=== PATIENT | female | born 1975 | race Caucasian/White ===

== ENCOUNTER 2016-10-10 14:51 | Emergency (ER) | payer MEDICAID ==
[~2016-10-10] VITALS: Wt 78.1 kg
[~2016-10-10 14:51] MED LIST: PREN1TAB62 PO; PRENAT PO; URSO250T10 PO
--- NOTE | 2016-10-10 17:29 | RADRPT ---
PROCEDURE: US OB CLINICAL INDICATION: no heart tones noted TECHNIQUE: Multiple sonographic images of the pelvis were obtained. The images were reviewed on a PACS workstation. COMPARISON: None FINDINGS: The cervix is not well visualized. There is a single viable intrauterine gestation. There is no cardiac activity. There is a breech presentation. The placenta is anterior. There is no evidence for an abruption or placenta previa. There is a subjectively normal amount of amniotic fluid. Measurements were made in order to determine age. The results are as follows (cm): BPD =3.06 HC =11.05 AC =9.07 FL =1.67 Estimated gestational age by ultrasound of approximately 15 weeks, 2 days. The estimated date of delivery by ultrasound is 04/01/2017. Estimated gestational age by LMP of approximately 18 weeks, 6 days. The estimated date of delivery by LMP is 03/07/2017. EFW = 116 grams IMPRESSION: A single intrauterine gestation is identified consistent with a gestational age of 15 weeks, 2 days. No heart tones are detected consistent with demise. Continued sonographic follow-up i s recommended. Breech presentation. These findings were discussed with IBETH Meier over the phone on 10/10/2016 at 17:25 hours . RPTAT: EE Physician Selvin Date Time Electronically viewed and signed by Physician Selvin on 10/10/2016 17:28 /
--- NOTE | 2016-10-10 19:08 | ERD ---
ER Documentation Chief Complaint Date/Time DATE: 10/10/16 TIME: 19:06 Chief Complaint no auscultated fht per ob sent here for further eval. no vag bleed or pain HPI 41-year-old female with no significant past medical history is a presents the ED complaining of no heart tones detected on her ultrasound earlier today at the clinic. States that she was sent here by her OB clinic for a repeat ultrasound for further evaluation. Reports that her last menses was on May 31. Denies any vaginal bleeding, vaginal discharge, abdominal pain , chest pain, shortness of breath, vomiting, dysuria. ROS All systems reviewed and are negative except as per history of present illness. Medications Home Meds Reported Medications Ursodiol* (Ursodiol*) 250 Mg Tablet, 250 MG PO BID, TAB 10/02/14 Vit-Iron Fumarate-FA ( Vitamin Tablet) 1 Each Tablet, 1 TAB PO DAILY, TAB 10/02/14 Multivit/Min/Fol Ac/Iron/Pren* ( S*) 1 Tab Tab, 1 TAB PO BEFORE LUNCH, TAB 09/02/14 Allergies Allergies: Coded Allergies: No Known Allergies (Unverified Allergy, Unknown, 10/02/14) PMhx/Soc Medical and Surgical Hx: pt denies Medical Hx, pt denies Surgical Hx Physical Exam Vitals Vital Signs Date Time Temp Pulse Resp B/P Pulse Ox O2 Delivery O2 Flow Rate FiO2 10/10/16 15:28 98.1 95 21 123/67 98 Physical Exam Const: Wpn-ugy-zcqsknlim, well-nourished. In no acute distress. Head: Atraumatic, normocephalic Eyes: Normal Conjunctiva without injection. No purulent discharge. ENT: Normal external ear, nose. Moist oropharynx without tonsillar exudates. Non -erythematous pharynx. Uvula midline. No drooling. No trismus. Neck: No cervical midline tenderness. Full range of motion. No meningismus. No cervical lymphadenopathy. No JVD. Resp: Clear to auscultation bilaterally. No wheezing, rhonchi, rales, or crackles. No accessory muscle use. No retractions. Cardio: Regular rate and rhythm. No murmurs, rubs or gallops. Abd: Soft, nontender to palpation, non distended. Normal bowel sounds. No palpable masses. No rebound tenderness. No guarding. Negative McBurney's point. Negative psoas sign. Negative obturator sign. : See exam in MDM. Skin: No petechiae or rashes Back: No midline tenderness. No CVA tenderness. Ext: No cyanosis, or edema. Neur: Awake and alert. Normal gait. Normal coordination. Psych: Normal Mood and Affect Procedures/MDM This is a 41-year-old female with no significant past medical history is a presents the ED complaining of no heart tones noted on her ultrasound. Patient is afebrile and nontoxic-appearing. Patient has normal vital signs. An ultrasound was ordered to further evaluate patient. PROCEDURE: US OB CLINICAL INDICATION: no heart tones noted TECHNIQUE: Multiple sonographic images of the pelvis were obtained. The images were reviewed on a PACS workstation. COMPARISON: None FINDINGS: The cervix is not well visualized. There is a single viable intrauterine gestation. There is no cardiac activity. There is a breech presentation. The placenta is anterior. There is no evidence for an abruption or placenta previa. There is a subjectively normal amount of amniotic fluid. Measurements were made in order to determine age. The results are as follows (cm): BPD = 3.06 HC = 11.05 AC = 9.07 FL = 1.67 Estimated gestational age by ultrasound of approximately 15 weeks, 2 days. The estimated date of delivery by ultrasound is 04/01/2017. Estimated gestational age by LMP of approximately 18 weeks, 6 days. The estimated date of delivery by LMP is 03/07/2017. EFW = 116 grams IMPRESSION: A single intrauterine gestation is identified consistent with a gestational age of 15 weeks, 2 days. No heart tones are detected consistent with demise. Continued sonographic follow-up is recommended. Breech presentation. These findings were discussed with IBETH Albarran over the phone on 10/10/2016 at 17:25 hours . Patient's ultrasound shows a possible demise. This case was discussed with my supervising physician, Dr. Madsen. We both agreed to consult delay person contract associate. Dr. Evans consulted and stated that patient can be managed on outpatient basis. Low suspicion for symptomatic anemia, ectopic , sepsis, PID, appendicitis, ovarian torsion, tubo-ovarian abscess, surgical abdomen, or other emergent conditions. Patient was educated that there is a risk for threatened . Patient to follow up with [facility] in 2 days for further evaluation and treatment. Patient is to return sooner to the ED for any worsening symptoms. Patient's questions were answered. Patient understood and agreed with discharge plan. Departure Diagnosis: Primary Impression: demise Condition: Stable Patient Instructions: Miscarriage Referrals: [facility] YOU HAVE RECEIVED A MEDICAL SCREENING EXAM AND THE RESULTS INDICATE THAT YOU DO NOT HAVE A CONDITION THAT REQUIRES URGENT TREATMENT IN THE EMERGENCY DEPARTMENT. FURTHER EVALUATION AND TREATMENT OF YOUR CONDITION CAN WAIT UNTIL YOU ARE SEEN IN YOUR DOCTORS OFFICE WITHIN THE NEXT 1-2 DAYS. IT IS YOUR RESPONSIBILITY TO MAKE AN APPOINTMENT FOR FOLOW-UP CARE. IF YOU HAVE A PRIMARY DOCTOR --you should call your primary doctor and schedule an appointment IF YOU DO NOT HAVE A PRIMARY DOCTOR YOU CAN CALL OUR PHYSICIAN REFERRAL HOTLINE AT IF YOU CAN NOT AFFORD TO SEE A PHYSICIAN YOU CAN CHOSE FROM THE FOLLOWING [facility] [address] [facility]. [facility] [address] [facility] [address] [facility] [address] [facility] [address] [facility]. [facility] [address] [facility]. [facility] YOU HAVE RECEIVED A MEDICAL SCREENING EXAM AND THE RESULTS INDICATE THAT YOU DO NOT HAVE A CONDITION THAT REQUIRES URGENT TREATMENT IN THE EMERGENCY DEPARTMENT. FURTHER EVALUATION AND TREATMENT OF YOUR CONDITION CAN WAIT UNTIL YOU ARE SEEN IN YOUR DOCTORS OFFICE WITHIN THE NEXT 1-2 DAYS. IT IS YOUR RESPONSIBILITY TO MAKE AN APPOINTMENT FOR FOLOW-UP CARE. IF YOU HAVE A PRIMARY DOCTOR --you should call your primary doctor and schedule and appointment IF YOU DO NOT HAVE A PRIMARY DOCTOR YOU CAN CALL OUR PHYSICIAN REFERRAL HOTLINE AT . IF YOU CAN NOT AFFORD TO SEE A PHYSICIAN YOU CAN CHOSE FROM THE FOLLOWING FORMERLY [facility], [facility] INSTITUTIONS: [facility] [address] [place] [address] [facility] [address] [place] [address] [facility] [address] [place] [address] [facility] [place] [address] [facility] [address] [place] [address] OFFICE FAX , [facility] [address] [place], [place] [id number] [address] MESA, [place] [address] [place] [address] DR CARDENAS, [facility] [address], [facility] [address] [address]ARDEN, [facility] [address] [place] [address] [facility] [address] [place] [address] [address] [facility] [address] - [facility] [address], [place] [address] [address] PATEL, [place] [address] [facility]. [address], [place] [address] [address] WILSON, [facility] [address] [place], [place] [id number] [facility] Hours: 8:00 am - 5:00 pm Additional Instructions: Visite a [facility] maana para un EXAMEN.Regrese a estas instalaciones si no se mejora mery esperbamos o mery le dijimos. SAVAGE ALBARRAN PA-C Oct 10, 2016 19:08
== END 2016-10-10 18:51 | disposition home or self-care (01) ==
LOC: FTE 14:51
DX: O02.1 Missed abortion (principal)
CPT/HCPCS: 76805